=== PATIENT | female | born 1970 | race African-American/Black ===

== ENCOUNTER 2022-07-28 20:46 | Emergency (ER) | payer MEDICAID ==
[~2022-07-28] VITALS: Ht 175.2 cm; Wt 83.9 kg
== END 2022-07-28 23:00 | disposition left against medical advice (07) ==
LOC: ED 20:46
DX: R11.2 Nausea with vomiting, unspecified (principal); R50.9 Fever, unspecified; R39.89 Other symptoms and signs involving the genitourinary system; Z53.21 Procedure and treatment not carried out due to patient leaving prior to being seen by health care provider